=== PATIENT | female | born 1965 | race Two or more races ===

== ENCOUNTER 2018-06-27 06:17 | Day surgery (SDC) | payer BC ==
[2018-06-27] VITALS (14 sets, daily range): BP systolic 131–153; BP diastolic 73–93; PULSE 74–86; RESP 11–21; Ht 152.4 cm; Wt 59.4 kg
[~2018-06-27] VITALS: Ht 152.4 cm; Wt 59.4 kg
--- NOTE | 2018-06-27 06:32 | PREOPHP ---
DATE OF ADMISSION: 06/27/2018 HISTORY OF PRESENT ILLNESS: This is a 52-year-old lady, 5 para 3 with 2 spontaneous s. Her last normal menstrual period was in 2013. She was admitted for D and C, hysteroscopy, suctio n curettage and IUD removal. This patient has had IUD for the last 20 years. She had gone to the inic for it to be removed, but were unsuccessful. I tried to remove it in the clinic as well, but ca nnot remove and she wanted to have the IUD removed. Ultrasound showed that the IUD was inside the ut erus. The procedures were explained to the patient and she understood everything totally. The risks , benefits and alternatives were discussed with her as well. PAST MEDICAL HISTORY: No history of TB, asthma. She has a history of high blood pressure. ALLERGIES: No allergies. She had 3 sections. PAST SURGICAL HISTORY: She had 3 sections. She had appendectomy done. She had hip surgery in 2007. FAMILY HISTORY: High blood pressure in father and sister have heart disease and a sister had cancer as well. PAST OBSTETRICAL HISTORY: She is 3, para 3 with 3 sections and 2 spontaneous aborti ons. GYNECOLOGIC HISTORY: She had menarche at the age of 13, every 28 days interval, 3 to 4 days duration , and moderate in amount. REVIEW OF SYSTEMS: CARDIOVASCULAR: No chest pains. RESPIRATORY: No cough. GASTROINTESTINAL: No diarrhea, no vomiting. GENITOURINARY: No dysuria. PHYSICAL EXAMINATION: GENERAL: Reveals a conscious, coherent lady and in no acute distress. VITAL SIGNS: Her blood pressure 120/80, pulse rate 80 per minute, respirations 16 per minute. BREASTS, HEART AND LUNGS: Within normal limits. ABDOMEN: Soft. No organomegaly. PELVIC: Revealed the cervix to be firm, uterus of normal size, and adnexa were negative for masses. RECTAL: Confirmed the pelvic findings. EXTREMITIES: No pedal edema. ADMITTING DIAGNOSIS: Misplaced IUD. PLAN: The patient was planned to have the above procedure. Also, this patient was informed that if the IUD cannot be removed, she may need to have a laparotomy, but at this time, the patient does not like to have it done. She just like it to be removed through from the vagina and we will discuss lat er if it cannot be removed. Dictated By: LICO PAYNE/LYSSA Conf#: [id number] DID#: [id number]
[2018-06-27] MEDS ORDERED: BENA40TA56 PO (07:44)
--- NOTE | 2018-06-27 09:31 | PREAC ---
Date/Time of Note Date/Time of Note DATE: 06/27/18 TIME: 09:29 Anesthesia Eval and Record Evaluation Time Pre-Procedure Interview DATE: 06/27/18 TIME: 09:29 Age 52 Sex female NPO: 8 hrs Preoperative diagnosis retained IUD Planned procedure D and C, hysteroscopy, suction curettage and IUD removal. Past Medical History Past Medical History: Includes Cardio: HTN Endo: Hypothyroid Surgery & Anesthesia Issues No known issue Meds Anticoagulation: No Beta Ira within 24 hr: No Reason Beta Ira not given: Pt. not on B-Ira Reported Medications Benazepril Hcl* (Benazepril Hcl*) 40 Mg Tablet, 40 MG PO DAILY, #30 TAB 06/27/18 Meds reviewed: Yes Allergies Coded Allergies: No Known Allergy (Unverified , 06/27/18) Allergies Reviewed: Yes Labs/Studies Labs Reviewed: Reviewed by anesthesiologist Result Diagram: 06/27/18 0710 Laboratory Tests 06/27/18 07:10 test: Negative Studies: ECG, CXR Pre-procedure Exam Last vitals Vital Signs Date Temp Pulse Resp B/P (MAP) Pulse Ox O2 O2 Flow FiO2 Time Delivery Rate 06/27/18 96.9 84 16 132/73 99 Room Air 07:28 (92) Airway: Adequate mouth opening, Adequate thyromental dist Mallampati: Mallampati II Teeth: Normal Lung: Normal Heart: Normal ASA Physical Status ASA physical status: 2 Emergency: None Planned Anesthetic General/MAC: LMA Planned Pain Management Local by surgeon Pre-operative Attestations Prior to commencing anesthesia and surgery, the patient was re-evaluated, there was verification of: *The patient's identity *The results of appropriate recent lab work and preoperative vital signs *The above evaluation not changing prior to induction *Anesthetic plan, risk benefits, alternative and complications discussed with patient/family; questions answered; patient/family understands, accepts and wishes to proceed. EAMON AQUINO CRNA Jun 27, 2018 09:31
[2018-06-27] MEDS ORDERED: LIDOCAINE 2% (SDV) 5 ML INJ ONE (09:35)
[2018-06-27] MEDS ORDERED: FENTAnyl 50 MCG/ML VIAL ONE (09:35)
[2018-06-27] MEDS ORDERED: PROPOFOL 20 ML ONE (09:35)
[2018-06-27] MEDS ORDERED: DEXAMETHASONE 4 MG/ML 5 ML INJ ONE (09:46)
[2018-06-27] MEDS ORDERED: ONDANSETRON 4 MG INJ ONE (09:46)
[2018-06-27] MEDS ORDERED: CEFAZOLIN 1 GM INJ ONE (09:46)
[2018-06-27] MEDS ORDERED: FAMOTIDINE 20 MG INJ ONE (09:46)
--- NOTE | 2018-06-27 10:19 | PAC ---
Date/Time of Note Date/Time of Note DATE: 06/27/18 TIME: 10:17 Post-Anesthesia Notes Post-Anesthesia Note Last documented vital signs Vital Signs Date Temp Pulse Resp B/P (MAP) Pulse Ox O2 O2 Flow FiO2 Time Delivery Rate 06/27/18 96.9 84 16 132/73 99 Room Air 07:28 (92) Activity: WNL Respiratory function: WNL Cardiovascular function: WNL Mental status: Baseline Pain reasonably controlled: Yes Hydration appropriate: Yes Nausea/Vomiting absent: Yes Comments 123/80 sp02 100% HR 87 RR 17 T 98.8F EAMON AQUINO FORESTRY PROFESSOR Jun 27, 2018 10:19
[2018-06-27] MEDS ORDERED: FENTAnyl 50 MCG/ML VIAL IV PRN ×2 (10:30)
[2018-06-27] MEDS ORDERED: OXYCODONE/ACETAMINOPHEN (5/325) TAB PO PRN (10:30)
[2018-06-27] MEDS ORDERED: MEPERIDINE 25 MG INJ IV PRN (10:30)
[2018-06-27] MEDS ORDERED: HYDROmorphONE 1 MG/5 ML IV SYRINGE IV PRN ×2 (10:30)
[2018-06-27] MEDS ORDERED: KETOROLAC 30 MG INJ IV PRN (10:30)
--- NOTE | 2018-06-27 10:33 | SIPON ---
Date/Time of Note Date/Time of Note DATE: 06/27/18 TIME: 10:32 Operative Report Preoperative Diagnosis MISPLACED IUD Postoperative Diagnosis MISPLACED IUD Operation/Procedure Performed D&C HYSTEROSOCPY IUD REMOVAL Surgeon see signature line foundation assistant MAINTAINER OPERATOR Anesthesia: general Estimated blood loss: minimal Transfusion Required none Specimen [facility] IUD PARAGARD Grafts/Implants none Complications none LICO FALLON MD Jun 27, 2018 10:33
[2018-06-27] MEDS ORDERED: ACETAMINOPHEN 325 MG TAB PO PRN (11:00)
--- NOTE | 2018-06-27 14:54 | OPR ---
DATE OF OPERATION: 06/27/2018 PREOPERATIVE DIAGNOSES: 1. Misplaced IUD. 2. Menopause. POSTOPERATIVE DIAGNOSES: 1. Misplaced IUD. 2. Menopause. OPERATION PERFORMED: D and C, hysteroscopy, and IUD removal (ParaGard). SURGEON: Rhonda Herrera MD SENIOR QUALITY ASSURANCE SPECIALIST: Pop wilkins. ANESTHESIA: General. OPERATIVE TECHNIQUE: Under general anesthesia, the patient was prepped and draped in the usual fashi on for vaginal surgery. Pelvic exam under anesthesia revealed the cervix to be firm, uterus of rhonda l size and adnexa were negative for masses. Then, the heavy weight vaginal retractor was put in plac e and the anterior lip of the cervix was grasped with an Allis clamp. Endocervical dilatation up to Hegar 6 was proceeded. Uterus was sounded to about 3 inches. The hysteroscope was inserted inside t he uterine cavity and connected with a light source. The uterus was distended with normal saline. T he IUD was noted to be deeply attached transversely on the lower uterine segment. No polyps nor fibr oids seen. Endocervical curettage was done and small amount of tissue was obtained. The IUD was tri ed to be pulled out with the aid of small ovum forceps, but there was some difficulty. Then the cure ttage was done around the place where the IUD was and then finally the IUD was pulled out with the ov um forceps and it was delivered intact and picture was taken. It was ParaGard. Then as mentioned, e ndometrial curettage was done and good amount of tissue was obtained. The uterus was intact during a nd after the procedure. The patient tolerated the procedure well. Estimated blood loss was minimal. Vital signs were stable during and after the procedure. Dictated By: RHONDA PAYNE/NTS Conf#: [id number] DID#: [id number]
== END 2018-06-27 11:59 | disposition home or self-care (01) ==
LOC: SDS 06:17
PROVIDERS: ATTEND Obstetrics & Gynecology
DX: T83.89XA Other specified complication of genitourinary prosthetic devices, implants and grafts, initial encounter (principal); Y76.8 Miscellaneous obstetric and gynecological devices associated with adverse incidents, not elsewhere classified; Y83.8 Other surgical procedures as the cause of abnormal reaction of the patient, or of later complication, without mention of misadventure at the time of the procedure; I10 Essential (primary) hypertension; E03.9 Hypothyroidism, unspecified
CPT/HCPCS: 58562; 84702; 85025; 86850; 86900; 86901; 88300; 88305; J0690; J1100; J1170; J2405; J3010; Z7512; Z7610